=== PATIENT | female | born 1980 | race Caucasian/White ===

== ENCOUNTER 2018-01-01 19:10 | Emergency (ER) | payer OTHER ==
[2018-01-01] MEDS ORDERED: Gentamicin 0.3% Ophth Soln 5 ML Bottle ONE (19:36)
--- NOTE | 2018-01-01 19:38 | EDM.PDOC ---
ED HPI GENERAL MEDICAL PROBLEM - General Stated Complaint: OBJECT IN LT EYE Time Seen by Provider: 01/01/18 19:10 Source of Information: Reports: Patient History Limitations: Reports: No Limitations - History of Present Illness INITIAL COMMENTS - FREE TEXT/NARRATIVE: 37 y.o.w.f in prev healthy condition, came to the ed shortly after she she felt something went in he left eye while attempting to repair her child roller. Pt has pain when she ofens and closes her left eye and feels there is something at her left lower eye lid. Pt denies any visual issues. Visual activity was 20/20 Pt denied any other acute medical issues. BP 108/63 pulse 63 RR 18 pulse ox 100 % on RA temp 36.8 Onset Date: 01/01/18 Onset Time: 18:00 Duration: Hour(s): Location: Reports: Face Quality: Reports: Ache Severity: Mild Improves with: Reports: Rest Worsens with: Reports: Movement Context: Reports: Other (poss FB left eye.) - Related Data Allergies Allergy/AdvReac Type Severity Reaction Status Date / Time No Known Allergies Allergy Verified 01/01/18 19:23 Home Meds: Home Meds NK [No Known Home Meds] 01/01/18 [History] ED ROS GENERAL - Review of Systems Review Of Systems: See Below Constitutional: Reports: No Symptoms HEENT: Reports: Eye Pain (left) Respiratory: Reports: No Symptoms Cardiovascular: Reports: No Symptoms Endocrine: Reports: No Symptoms GI/Abdominal: Reports: No Symptoms : Reports: No Symptoms Musculoskeletal: Reports: No Symptoms Skin: Reports: No Symptoms Neurological: Reports: No Symptoms Psychiatric: Reports: No Symptoms Hematologic/Lymphatic: Reports: No Symptoms Immunologic: Reports: No Symptoms ED EXAM GENERAL W FULL EYE - Physical Exam Exam: See Below Exam Limited By: No Limitations General Appearance: Alert, WD/WN, Mild Distress Eye Exam: Left Eye: Conjunctival Injection, Bilateral Eye: Normal Inspection Visual Acuity (R) 20/: 20 Visual Acuity (L) 20/: 20 With Correction: No Eyelids: Bilateral: Normal Appearance Conjunctiva & Sclera: Left: Injected Cornea Exam: Left: Normal Appearance Extraocular Movements: Bilateral: Intact Pupillary Size: Bilateral: 3 mm Pupillary Reaction: Bilateral: Brisk Anterior Chamber: Left: Normal Appearance Ears: Normal External Exam Nose: Normal Inspection Throat/Mouth: Normal Inspection, Normal Lips, Normal Teeth, Normal Gums, Normal Oropharynx, Normal Voice, No Airway Compromise Head: Atraumatic, Normocephalic Neck: Normal Inspection, Supple, Non-Tender Respiratory/Chest: No Respiratory Distress, Lungs Clear, Normal Breath Sounds Cardiovascular: Normal Peripheral Pulses, Regular Rate, Rhythm, No Edema, No Gallop, No JVD, No Murmur GI/Abdominal: Normal Bowel Sounds, Soft, Non-Tender, No Organomegaly, No Mass, Pelvis Stable (Male) Exam: Deferred (Female) Exam: Deferred Rectal (Males) Exam: Deferred Rectal (Female) Exam: Deferred Back Exam: Normal Inspection, Full Range of Motion Extremities: Normal Inspection Neurological: Alert, Oriented, CN II-XII Intact, Normal Cognition Psychiatric: Normal Affect, Normal Mood Skin Exam: Warm, Dry Lymphatic: No Adenopathy Course - Vital Signs Text/Narrative:: 37 y.o.w.f in prev healthy condition, came to the ed shortly after she she felt something went in he left eye while attempting to repair her child roller. Pt has pain when she ofens and closes her left eye and feels there is something at her left lower eye lid. Pt denies any visual issues. Visual activity was 20/20 Pt denied any other acute medical issues. BP 108/63 pulse 63 RR 18 pulse ox 100 % on RA temp 36.8 Procedure: Local anest with Michael. fluro strip was applied, no corneal lesion was detected with the blue light Impression: Conjunctivitis left eye Tx: Gentamicin Reexam: Improved Plan: D/C with instructions Last Recorded V/S: Last Vital Signs Temp 36.7 C 01/01/18 19:10 Pulse 60 01/01/18 19:10 Resp 17 01/01/18 19:10 BP 108/63 01/01/18 19:10 Pulse Ox 100 01/01/18 19:10 - Orders/Labs/Meds Meds: Medications Discontinued Medications Generic Name Dose Route Start Last Admin Trade Name Freq PRN Reason Stop Dose Admin Gentamicin Sulfate 0.01 ml 01/01/18 19:33 01/01/18 19:53 Garamycin 0.3% Ophth Soln EYELF 01/01/18 19:34 Not Given TID STA Departure - Departure Time of Disposition: 19:42 Disposition: Home, Self-Care 01 Condition: Good Clinical Impression: Conjunctivitis Qualifiers: Conjunctivitis type: acute Acute conjunctivitis type: unspecified Laterality: left Qualified Code(s): H10.32 - Unspecified acute conjunctivitis, left eye - Discharge Information Instructions: Eye Foreign Body, [id number] Referrals: PCP,Not In Area [Primary Care Provider] - Forms: ED Department Discharge Additional Instructions: Please take tylenol for pain, Gentamicin eye drops 3 drops 3 times a day left eye, please f/u with your eye doctor if your symptoms did not subside in next 24 hours. Please come back if your symptoms get worse acutely
[2018-01-01] MEDS: Gentamicin 0.3% Ophth Soln 5 ML Bottle EYELF STA (19:53)
== END 2018-01-01 19:48 | disposition home or self-care (01) ==
LOC: FB.ED 19:10
DX: H10.32 Unspecified acute conjunctivitis, left eye (principal)
CPT/HCPCS: 99283; A9270-GY